=== PATIENT | male | born 1930 | race Caucasian/White ===

== ENCOUNTER → 2016-10-05 | Outpatient (REF) ==
[~2016-10-05] MED LIST: ASPIRIN 32325 MG/TAB PO; ASPIRIN E.C. 8181 MG PO; CEPHALEXIN500 M1 PO; HCTZ 25MG TAB25 MG PO; LIPITOR 80MG80 MG PO; MULTI VITAMINS1 TAB PO; NIASPAN1000 MG PO; NIASPAN500 MG PO; PRILOSEC 20MG20 MG PO; TENORMIN25 MG PO; TENORMIN50 MG PO; TYLENOL 325MG325 MG PO; XARELTO15 MG PO; [UNRECOGNIZED DRUG - CODE] PO
== END ==
LOC: ZLAB.WCH 08:52
DX: Z01.89 Encounter for other specified special examinations (principal)

== ENCOUNTER 2017-02-05 12:43 | Day surgery (SDC) | payer MEDICARE, BC ==
[~2017-02-05] VITALS: Ht 175.3 cm; Wt 86.0 kg
[2017-02-05] VITALS (11 sets, daily range): BP systolic 133–153; BP diastolic 55–87; PULSE 65–81; TEMP 98–98.2
[~2017-02-05 12:43] MED LIST changes: -ASPIRIN E.C. 8181 MG PO; -CEPHALEXIN500 M1 PO; -LIPITOR 80MG80 MG PO; -MULTI VITAMINS1 TAB PO; -TYLENOL 325MG325 MG PO; -XARELTO15 MG PO
[2017-02-05 13:37] LABS: HEMATOCRIT 39.5 % (42.0-52.0); HEMOGLOBIN 13.6 g/dl (13.5-18.0); MEAN CELL VOLUME 86 fl (80.0-100.0); MEAN CORPUSCULAR HEMOGLOBIN 30 pg (27.0-31.0); MEAN CORPUSCULAR HGB CONC 34 g/dl (33.0-37.0); MEAN PLATELET VOLUME 10.6 fl (7.4-10.4); PLATELET COUNT 212 K/mm3 (130-400); RED BLOOD COUNT 4.57 M/mm3 (4.20-5.60); REDCELL DISTRIBUTION WIDTH-CV 13.7 % (11.5-14.5); WHITE BLOOD COUNT 6.5 K/mm3 (4.8-10.8)
[2017-02-05 13:55] LABS: INR 1.1 (0.8-3.0); PROTHROMBIN TIME 11.7 SECONDS (9.7-12.8)
[2017-02-05] MEDS ORDERED: MULTI VITAMINS1 TAB PO (13:56)
[2017-02-05] MEDS ORDERED: XARELTO15 MG PO (13:57)
[2017-02-05] MEDS ORDERED: LIPITOR 80MG80 MG PO (13:58)
[2017-02-05 13:59] LABS: CALCIUM 9.7 mg/dL (8.4-10.2); CREATININE, serum 0.97 mg/dL (0.66-1.25); POTASSIUM 3.7 mmol/L (3.4-5.0)
[2017-02-05] MEDS ORDERED: ASPIRIN E.C. 8181 MG PO (13:59)
[2017-02-06 00:09] VITALS: BP 124/57; PULSE 79; TEMP 97.7
[2017-02-06 04:32] VITALS: BP 127/83; PULSE 64; TEMP 97.6
[2017-02-06 08:13] VITALS: BP 125/59; PULSE 71; TEMP 97
[2017-02-06] MEDS ORDERED: CEPHALEXIN500 M1 PO (10:43)
[2017-02-06] MEDS ORDERED: TYLENOL 325MG325 MG PO (10:44)
== END 2017-02-06 11:46 | disposition home or self-care (01) ==
LOC: COL.CAR 12:43 → MEDICAL 16:34 → COL.CAR 02-06 11:46
PROVIDERS: Internal Medicine Interventional Cardiology
DX: I49.5 Sick sinus syndrome (principal); I48.91 Unspecified atrial fibrillation; R60.0 Localized edema; I10 Essential (primary) hypertension; R06.02 Shortness of breath; Z79.01 Long term (current) use of anticoagulants; Z80.9 Family history of malignant neoplasm, unspecified
CPT/HCPCS: OP; J0690; J1940; J2250; J3010; J7030

== ENCOUNTER 2017-04-06 12:10 | Day surgery (SDC) | payer MEDICARE, BC ==
[2017-04-06] VITALS (7 sets, daily range): BP systolic 120–155; BP diastolic 65–83; PULSE 73–93; TEMP 97.5
[~2017-04-06] VITALS: Ht 175.4 cm; Wt 86.3 kg
[~2017-04-06 12:10] MED LIST changes: +ASPIRIN E.C. 8181 MG PO; +CEPHALEXIN500 M1 PO; +LIPITOR 80MG80 MG PO; +MULTI VITAMINS1 TAB PO; +NITROSTAT0.4 MG/TAB SL; +PLAVIX 75MG TAB75 MG PO; +TYLENOL 325MG325 MG PO; +XARELTO15 MG PO
[2017-04-06 12:55] LABS: INR 1.4 (0.8-3.0); POTASSIUM 3.9 mmol/L (3.4-5.0); PROTHROMBIN TIME 15.8 SECONDS (9.7-12.8)
[2017-04-06 13:30] LABS: THYROID STIMULATING HORMONE 1.91 uIU/mL (0.465-4.680)
[2017-04-06] MEDS ORDERED: PACERONE400 MG PO (16:33)
== END 2017-04-06 17:30 | disposition home or self-care (01) ==
LOC: COL.CAR 12:10
PROVIDERS: Internal Medicine Interventional Cardiology
DX: I48.91 Unspecified atrial fibrillation (principal); I08.1 Rheumatic disorders of both mitral and tricuspid valves; R94.39 Abnormal result of other cardiovascular function study; I10 Essential (primary) hypertension; Z95.0 Presence of cardiac pacemaker; Z79.01 Long term (current) use of anticoagulants; Z87.891 Personal history of nicotine dependence
CPT/HCPCS: J2250; J3010; J7030

== ENCOUNTER 2017-06-11 22:29 | Emergency (ER) | payer MEDICARE, BC ==
[~2017-06-11] VITALS: Ht 175.3 cm; Wt 83.6 kg
[~2017-06-11 22:29] MED LIST changes: +PACERONE400 MG PO
[2017-06-11 22:36] VITALS: TEMP 97.2
[2017-06-12 02:17] VITALS: BP 128/81; PULSE 77
== END 2017-06-12 02:20 | disposition home or self-care (01) ==
LOC: COL.ER 22:29
DX: T81.31XA Disruption of external operation (surgical) wound, not elsewhere classified, initial encounter (principal); I25.10 Atherosclerotic heart disease of native coronary artery without angina pectoris; I10 Essential (primary) hypertension; E78.5 Hyperlipidemia, unspecified; C44.90 Unspecified malignant neoplasm of skin, unspecified; Z95.0 Presence of cardiac pacemaker; Z95.5 Presence of coronary angioplasty implant and graft; Z79.82 Long term (current) use of aspirin; Z79.02 Long term (current) use of antithrombotics/antiplatelets; Z79.01 Long term (current) use of anticoagulants

== ENCOUNTER 2017-08-10 12:13 | Emergency (ER) | payer MEDICARE, BC ==
[~2017-08-10] VITALS: Ht 172.7 cm; Wt 72.7 kg
[2017-08-10 12:17] VITALS: TEMP 97.7
[2017-08-10 15:02] LABS: BASO % 0.4 % (0.0-2.0); EOS # 0.1 (0.0-0.7); EOS % 0.6 % (0-4.0); GRAN # 6.1 (1.4-6.5); GRAN % 77.3 % (42.2-75.2); LYMPH % 13.1 % (20.0-51.0); MEAN CELL VOLUME 92 fl (80.0-100.0); MEAN CORPUSCULAR HGB CONC 33 g/dl (33.0-37.0); MEAN PLATELET VOLUME 10.6 fl (7.4-10.4); MONO # 0.6 (0.1-0.6); PLATELET COUNT 198 K/mm3 (130-400); RED BLOOD COUNT 3.05 M/mm3 (4.20-5.60); REDCELL DISTRIBUTION WIDTH-CV 14.3 % (11.5-14.5)
[2017-08-10 15:12] LABS: HEMATOCRIT 27.9 % (42.0-52.0); HEMOGLOBIN 9.3 g/dl (13.5-18.0); MEAN CORPUSCULAR HEMOGLOBIN 30 pg (27.0-31.0)
[2017-08-10 15:18] LABS: ALBUMIN 3.9 gm/dL (3.5-5.0); BILIRUBIN,TOTAL 1.4 mg/dL (0.0-1.0); CALCIUM 8.8 mg/dL (8.4-10.2); CREATININE, serum 1.26 mg/dL (0.66-1.25); INR 2.3 (0.8-3.0); POTASSIUM 3.6 mmol/L (3.4-5.0); PROTHROMBIN TIME 26.9 SECONDS (9.7-12.8); TOTAL PROTEIN 7.1 gm/dL (6.4-8.2)
[2017-08-10 15:21] LABS: PARTIAL THROMBOPLASTIN TIME 42.8 SECONDS (26.0-37.0)
[2017-08-10 16:30] VITALS: BP 141/88; PULSE 76
== END 2017-08-10 16:38 | disposition home or self-care (01) ==
LOC: COL.ER 12:13
PROVIDERS: Physician Assistant
DX: R22.42 Localized swelling, mass and lump, left lower limb (principal); I25.10 Atherosclerotic heart disease of native coronary artery without angina pectoris; Z79.01 Long term (current) use of anticoagulants; Z79.82 Long term (current) use of aspirin; Z79.02 Long term (current) use of antithrombotics/antiplatelets; Z86.718 Personal history of other venous thrombosis and embolism; Z95.5 Presence of coronary angioplasty implant and graft

== ENCOUNTER → 2018-01-17 | Outpatient (REF) | LOC: ZLAB.WCH 15:57 | DX: Z01.89 Encounter for other specified special examinations (principal) ==